=== PATIENT | female | born 1965 | race Caucasian/White ===

== ENCOUNTER → 2017-05-20 | Outpatient (CLI) | payer BC ==
--- NOTE | 2017-05-21 14:08 | MM ---
Reason for exam: screening (asymptomatic). Last mammogram was performed 1 year and 1 month ago. History: Patient is postmenopausal. Benign cyst aspiration, 2011. Took hormonal contraceptives for 8 years. Taking estrogen for 2 years beginning at age 49. Taking progesterone for 2 years beginning at age 49. Physical Findings: A clinical breast exam by your physician is recommended on an annual basis and results should be correlated with mammographic findings. MG 3D Screening Mammo W/Cad Bilateral CC and MLO view(s) were taken. Prior study comparison: April 20, 2016, bilateral MG 3d screening mammo w/cad. March 31, 2015, bilateral MG 3d screening mammo w/cad. The breast tissue is heterogeneously dense. This may lower the sensitivity of mammography. There is a 5mm mass in the central outer left breast at middle depth on CC 24/65 3D image and less well seen on MLO 25/61 3D image. No suspicious abnormality in the right breast. ASSESSMENT: Incomplete: need additional imaging evaluation, BI-RAD 0 RECOMMENDATION: Special view mammogram of the left breast. If lesion persists on supplemental views, image directed ultrasound is recommended. [facility] will attempt to contact patient to return for supplemental views and ultrasound if indicated.
== END | disposition home or self-care (01) ==
LOC: RADMAMWWP 14:58
PROVIDERS: ATTEND Obstetrics & Gynecology
DX: Z12.31 Encounter for screening mammogram for malignant neoplasm of breast (principal)
CPT/HCPCS: 77063; 77067

== ENCOUNTER → 2017-05-27 | Outpatient (CLI) | payer BC ==
--- NOTE | 2017-05-27 14:18 | MM ---
Reason for exam: additional evaluation requested from abnormal screening. Last mammogram was performed less than 1 month ago. History: Patient is postmenopausal. Benign cyst aspiration, 2011. Took hormonal contraceptives for 8 years. Taking estrogen for 2 years beginning at age 49. Taking progesterone for 2 years beginning at age 49. Physical Findings: Nurse did not find any significant physical abnormalities on exam. MG 3D Work Up W/Cad LT Spot compression CC, spot compression MLO, and ML view(s) were taken of the left breast. Prior study comparison: May 20, 2017, bilateral MG 3d screening mammo w/cad. April 20, 2016, bilateral MG 3d screening mammo w/cad. The breast tissue is heterogeneously dense. This may lower the sensitivity of mammography. There is no discrete abnormality on compression or ML view. These results were verbally communicated with the patient and result sheet given to the patient on 05/27/17. ASSESSMENT: Probably benign, BI-RAD 3 RECOMMENDATION: Follow-up diagnostic mammogram of the left breast in 6 months.
== END | disposition home or self-care (01) ==
LOC: RADMAMWWP 13:33
PROVIDERS: ATTEND Obstetrics & Gynecology
DX: R92.8 Other abnormal and inconclusive findings on diagnostic imaging of breast (principal)
CPT/HCPCS: 77065; G0279

== ENCOUNTER → 2017-11-25 | Outpatient (CLI) | payer BC ==
--- NOTE | 2017-11-28 08:51 | MM ---
Reason for exam: follow-up at short interval from prior study. Last mammogram was performed 6 months ago. History: Patient is postmenopausal. Benign cyst aspiration, 2011. Took hormonal contraceptives for 8 years. Taking estrogen for 2 years beginning at age 49. Taking progesterone for 2 years beginning at age 49. Physical Findings: Nurse did not find any significant physical abnormalities on exam. MG 3D Diag Mammo W/Cad LT CC and MLO view(s) were taken of the left breast. Prior study comparison: May 27, 2017, left breast MG 3d work up w/cad LT. May 20, 2017, bilateral MG 3d screening mammo w/cad. April 20, 2016, bilateral MG 3d screening mammo w/cad. The breast tissue is extremely dense which could obscure a lesion on mammography. There is a persistant 6 mm round circumscribed lesion in the left slight upper outer middle breast. These results were verbally communicated with the patient and result sheet given to the patient on 11/25/17. ASSESSMENT: Incomplete: need additional imaging evaluation, BI-RAD 0 RECOMMENDATION: Ultrasound of the left breast.
--- NOTE | 2017-11-28 08:54 | USB ---
Reason for exam: additional evaluation requested from prior study. History: Patient is postmenopausal. Benign cyst aspiration, 2011. Took hormonal contraceptives for 8 years. Taking estrogen for 2 years beginning at age 49. Taking progesterone for 2 years beginning at age 49. US Breast Limited LT Left limited breast ultrasound including focal area of concern, retroareolar and axilla demonstrates an oval 0.4 x 0.3 x 0.5 cm cystic lesion, simple cyst at 3:00 o'clock and a round 0.6 x 0.6 x 0.6 cm cystic lesion at 2 o'clock, likely a simple cyst believed to correspond to mammogram abnormality. These results were verbally communicated with the patient and result sheet given to the patient on 11/25/17. ASSESSMENT: Probably benign, BI-RAD 3 RECOMMENDATION: Ultrasound of the left breast in 6 months. Follow-up diagnostic mammogram of both breasts in 6 months.
== END | disposition home or self-care (01) ==
LOC: RADMAMWWP 06:52
PROVIDERS: ATTEND Obstetrics & Gynecology
DX: R92.8 Other abnormal and inconclusive findings on diagnostic imaging of breast (principal)
CPT/HCPCS: 77061; 77065

== ENCOUNTER → 2018-05-30 | Outpatient (CLI) | payer BC ==
--- NOTE | 2018-05-30 11:13 | MM ---
Reason for exam: follow-up at short interval from prior study. Last mammogram was performed 6 months ago. History: Patient is postmenopausal. Benign cyst aspiration, 2011. Took hormonal contraceptives for 8 years. Taking estrogen for 2 years beginning at age 49. Taking progesterone for 2 years beginning at age 49. Physical Findings: Patient refused breast exam. MG 3D Diag Mammo W/Cad LAUREN Bilateral CC and MLO view(s) were taken. Prior study comparison: November 25, 2017, left breast MG 3d diag mammo w/cad LT. May 27, 2017, left breast MG 3d work up w/cad LT. The breast tissue is heterogeneously dense. This may lower the sensitivity of mammography. There is no discrete abnormality. No significant new findings when compared with previous films. These results were verbally communicated with the patient and result sheet given to the patient on 05/30/18. ASSESSMENT: Incomplete: need additional imaging evaluation, BI-RAD 0 RECOMMENDATION: Ultrasound of the left breast.
--- NOTE | 2018-05-30 11:14 | USB ---
Reason for exam: additional evaluation requested from abnormal screening. History: Patient is postmenopausal. Benign cyst aspiration, 2011. Took hormonal contraceptives for 8 years. Taking estrogen for 2 years beginning at age 49. Taking progesterone for 2 years beginning at age 49. US Breast LT Left complete breast ultrasound includes all four quadrants, the retroareolar region and axilla. Finding demonstrates a 0.5 x 0.3 x 0.5cm cystic lesion at 3 o'clock and a 0.4 x 0.3 x 0.4cm cystic lesion at 9 o'clock. These results were verbally communicated with the patient and result sheet given to the patient on 05/30/18. ASSESSMENT: Benign, BI-RAD 2 RECOMMENDATION: Routine screening mammogram of both breasts in 1 year.
== END | disposition home or self-care (01) ==
LOC: RADMAMWWP 08:03
PROVIDERS: ATTEND Obstetrics & Gynecology
DX: R92.8 Other abnormal and inconclusive findings on diagnostic imaging of breast (principal)
CPT/HCPCS: 77062; 77066

== ENCOUNTER → 2018-09-19 | Outpatient (CLI) | payer BC ==
--- NOTE | 2018-09-19 13:25 | XR ---
EXAMINATION TYPE: XR spine complete AP and Lat DATE OF EXAM: 09/19/2018 COMPARISON: NONE HISTORY: Pain TECHNIQUE: Three views of the cervical spine are submitted. FINDINGS: The cervical spine is visualized in its entirety from C1 thru the top of T1 level. It is s atisfactory in alignment without evidence of acute fracture or dislocation. The pre-vertebral soft t issue appears within normal limits. The C1-C2 articulation is unremarkable on the open mouth view. Disc spaces are well preserved. Minimal posterior spurring at C5-6. IMPRESSION: No acute fracture or dislocation is seen in the cervical spine. Disc spaces are well pre served. THORACIC SPINE 2 VIEWS. TECHNIQUE: Frontal, lateral, and swimmer's view of thoracic spine are obtained. COMPARISON: None. FINDINGS: Thoracic spine show satisfactory alignment without evidence of acute fracture or dislocatio n. Vertebral body heights are preserved. Disc spaces are well preserved. Visualized ribs are unre markable. Mild scattered ventral spurring noted. IMPRESSION: No acute fracture or dislocation is seen in the thoracic spine. Disc spaces are well pres erved. LUMBAR SPINE X-RAY: TECHNIQUE: Three views of the lumbar spine are submitted. COMPARISON: None. FINDINGS: There are 5 lumbar type vertebral bodies identified. The lumbar spine shows satisfactory alignment without evidence of acute fracture or dislocation. Vertebral body heights are within normal limits. Disc spaces are well preserved. The overlying soft tissue appears unremarkable. IMPRESSION: No acute fracture or dislocation is seen in the lumbar spine. Disc spaces are well pres erved.ICD 10 NO FRACTURE, INITIAL EVALUATION
--- NOTE | 2018-09-19 13:40 | CT ---
EXAMINATION TYPE: CT brain wo con DATE OF EXAM: 09/19/2018 COMPARISON: None HISTORY: Post concussin syndrome F07.[address] of the brain was performed. The ventricles, basal cisterns and sulci overlying the cerebral convexities demonstrate a normal appe arance. There is no evidence for intracranial hemorrhage or sulcal effacement. No mass effects are seen. Osseous calvarium is intact. If symptoms persist consider MRI as clinically warranted. IMPRESSION: 1. No acute intracranial process is seen at this time.
== END | disposition home or self-care (01) ==
LOC: RADCTMAIN 12:54
PROVIDERS: ATTEND Family Medicine
DX: F07.81 Postconcussional syndrome (principal); M54.2 Cervicalgia; M54.5 Low back pain
CPT/HCPCS: 70450; 72082

== ENCOUNTER → 2019-06-15 | Outpatient (CLI) | payer BC ==
--- NOTE | 2019-06-16 07:37 | MM ---
Reason for exam: additional evaluation requested from abnormal screening. Last mammogram was performed less than 1 month ago. History: Patient is postmenopausal. Benign cyst aspiration, 2011. Took hormonal contraceptives for 8 years. Taking estrogen for 5 years beginning at age 49. Taking progesterone for 5 years beginning at age 49. Physical Findings: Nurse did not find any significant physical abnormalities on exam. MG 3D Work Up W/Cad LT Spot compression CC, spot compression MLO, and LM view(s) were taken of the left breast. Prior study comparison: June 04, 2019, bilateral MG 3d screening mammo w/cad. May 30, 2018, bilateral MG 3d diag mammo w/cad LAUREN. The breast tissue is heterogeneously dense. This may lower the sensitivity of mammography. 6mm circumscribed round isodense focal asymmetry posterior upper outer quadrant. Similar circumscribed area lower inner quadrant middle depth. Benign etiology is favored. 6 month follow up. These results were verbally communicated with the patient and result sheet given to the patient on 06/15/19. ASSESSMENT: Probably benign, BI-RAD 3 RECOMMENDATION: Follow-up diagnostic mammogram of the left breast in 6 months.
== END | disposition home or self-care (01) ==
LOC: RADMAMWWP 14:49
PROVIDERS: ATTEND Obstetrics & Gynecology
DX: R92.8 Other abnormal and inconclusive findings on diagnostic imaging of breast (principal)
CPT/HCPCS: 77061; 77065

== ENCOUNTER → 2020-02-24 | Outpatient (CLI) | payer BC ==
--- NOTE | 2020-02-24 12:04 | MM ---
Reason for exam: follow-up at short interval from prior study. Last mammogram was performed 8 months ago. History: Patient is postmenopausal. Benign cyst aspiration, 2011. Took hormonal contraceptives for 8 years. Taking estrogen for 5 years beginning at age 49. Taking progesterone for 5 years beginning at age 49. Physical Findings: Nurse did not find any significant physical abnormalities on exam. MG 3D Diag Mammo W/Cad LT CC and MLO view(s) were taken of the left breast. Prior study comparison: June 15, 2019, left breast MG 3d work up w/cad LT. June 04, 2019, bilateral MG 3d screening mammo w/cad. The breast tissue is heterogeneously dense. This may lower the sensitivity of mammography. Finding: There is a typically benign 4 mm equal density (isodense), circumscribed round mass in the 6 o'clock middle position of the left breast. There is no discrete abnormality. Previous nodule not discrete. No significant changes in finding since June 15, 2019 and June 04, 2019. These results were verbally communicated with the patient and result sheet given to the patient on 02/24/20. ASSESSMENT: Benign, BI-RAD 2 RECOMMENDATION: Follow-up diagnostic mammogram of both breasts in 4 months. Back on schedule for May 2020.
== END | disposition home or self-care (01) ==
LOC: RADMAMWWP 10:41
PROVIDERS: ATTEND Obstetrics & Gynecology
DX: R92.8 Other abnormal and inconclusive findings on diagnostic imaging of breast (principal)
CPT/HCPCS: 77061; 77065

== ENCOUNTER → 2020-07-01 | Outpatient (CLI) | payer BC ==
--- NOTE | 2020-07-05 10:43 | MM ---
Reason for exam: screening (asymptomatic). Last mammogram was performed 4 months ago. History: Patient is postmenopausal. Benign cyst aspiration, 2011. Took hormonal contraceptives for 8 years. Taking estrogen for 5 years beginning at age 49. Taking progesterone for 5 years beginning at age 49. Physical Findings: A clinical breast exam by your physician is recommended on an annual basis and results should be correlated with mammographic findings. MG 3D Screening Mammo W/Cad Bilateral CC and MLO view(s) were taken. Prior study comparison: February 24, 2020, left breast MG 3d diag mammo w/cad LT. June 15, 2019, left breast MG 3d work up w/cad LT. The breast tissue is heterogeneously dense. This may lower the sensitivity of mammography. No significant changes when compared with prior studies. ASSESSMENT: Negative, BI-RAD 1 RECOMMENDATION: Routine screening mammogram of both breasts in 1 year. Patient should continue monthly self breast exams. A negative report should not preclude additional follow up of suspicious palpable abnormalities.
== END ==
LOC: RADMAMWWP 14:36
PROVIDERS: ATTEND Obstetrics & Gynecology
DX: Z12.31 Encounter for screening mammogram for malignant neoplasm of breast (principal); Z78.0 Asymptomatic menopausal state
CPT/HCPCS: 77063; 77067

== ENCOUNTER 2020-10-12 09:43 | Day surgery (SDC) | payer BC ==
[2020-10-11 09:02] VITALS: BMI 26.6
[2020-10-12 10:37] VITALS: RESP 16; TEMP 97.8
[2020-10-12] MEDS: LACTATED RINGERS 1,000 ML IV SCH ×2 (10:42→10:54)
[2020-10-12] MEDS ORDERED: PROPOFOL 10 MG/ML 20 ML VIAL IV ONE (10:57)
--- NOTE | 2020-10-12 11:11 | P.PCN ---
Date of Procedure: 10/12/20 Procedure(s) Performed: BRIEF HISTORY: Patient is a 55-year-old pleasant white female scheduled for an elective colonoscopy as a part of screening for colorectal neoplasia. PROCEDURE PERFORMED: Colonoscopy. PREOPERATIVE DIAGNOSIS: Screening for colon cancer. IV sedation per Anesthesia. PROCEDURE: After informed consent was obtained, the patient, was brought into the endoscopy unit. IV sedation was administered by Anesthesia under continuous monitoring. Digital rectal examination was normal. Initially the Olympus CF-160 flexible video colonoscope was then inserted in the rectum, gradually advanced into the cecum without any difficulty. Careful examination was performed as the scope was gradually being withdrawn. Ileocecal valve and the appendiceal orifice were visualized and appeared normal. Prep was excellent. Mucosa of the cecum, ascending colon, transverse colon, descending colon, sigmoid colon, and rectum appeared normal. Retroflexion was performed in the rectum and no lesions were seen. The patient tolerated the procedure well. IMPRESSION: Normal-appearing colon from rectum to cecum with no evidence of colorectal neoplasia . RECOMMENDATIONS: Findings of this examination were discussed with the patient is a family. She was advised to have a repeat screening colonoscopy in 10 years.
[2020-10-12 11:31] VITALS: BP 131/98; PULSE 89
== END 2020-10-12 11:55 | disposition home or self-care (01) ==
LOC: ORWHC2ENDO 09:43
PROVIDERS: ATTEND Internal Medicine Gastroenterology
DX: Z12.11 Encounter for screening for malignant neoplasm of colon (principal); I10 Essential (primary) hypertension; E78.5 Hyperlipidemia, unspecified; Z87.891 Personal history of nicotine dependence; Z79.899 Other long term (current) drug therapy; Z79.3 Long term (current) use of hormonal contraceptives; Z88.5 Allergy status to narcotic agent
CPT/HCPCS: J2704; G0121; 45378

== ENCOUNTER → 2021-07-21 | Outpatient (CLI) | payer BC ==
--- NOTE | 2021-07-21 14:42 | US ---
EXAMINATION TYPE: US thyroid st tissue head/neck DATE OF EXAM: 07/21/2021 COMPARISON: NONE CLINICAL HISTORY: R79.89, E01.0 Thyromegaly. Enlarged. GLAND SIZE: Right Lobe: 5.5 x1.7 x 2.5 cm Overall Parenchyma: homogenous Left Lobe: 4.1 x 1.4 x 1.4 cm Overall Parenchyma: homogeneous Isthmus Thickness: .4 cm NODULES RIGHT: # of nodules measured on right: 1 1. 1.4 X .7 x 1.3 cm, upper , solid or almost completely solid, hypoechoic nodule, which is wider t todd tall, with smooth margins, without echogenic foci. Prior size: 1.6 x .9 x .6 cm Multiple right nodules subcentimeter. Measured largest at upper pole. LEFT: # of nodules measured on left: 1 1. .6 X .5 x .7 cm, lower lateral, echogenic, hyperechoic nodule, which is wider than tall, with sm ooth margins, without echogenic foci. Prior size: .5 x .4 x .3 cm ISTHMUS: # of nodules measured in the isthmus: 0 Bilateral neck scanned, no evidence of lymphadenopathy. IMPRESSION: Thyromegaly with multinodular thyroid stable in appearance. 2017 ACR TI-RADS LEVEL: TR-RADS 4 - Moderately Suspicious: Follow if > 1 cm, FNA if > 1.5 cm *Highest TI-RADS level nodule reported
--- NOTE | 2021-07-21 15:15 | US ---
EXAMINATION TYPE: US transvaginal DATE OF EXAM: 07/21/2021 COMPARISON: NONE CLINICAL HISTORY: R10.30,D26.9. Pain ablation done TECHNIQUE: Transvaginal (TV). EXAM MEASUREMENTS: Uterus: 6.6 x 2.8 x 3.9 cm Endometrial Stripe: .7 cm 1. Uterus: Anteverted Heterogenous calcified area seen measuring 1.4 x 1.2 x 1.5 cm. 2. Endometrium: wnl 3. Right Ovary: 1.5 x 1.2 x 1.7 cm 4. Left Ovary: 1.8 x 1.1 cm not well seen in trans. 5. Bilateral Adnexa: wnl 6. Posterior cul-de-sac: wnl A few small nabothian cysts in the cervix. Endometrial stripe measures 7 mm which is prominent after ablation. Heterogeneous shadowing calcification in the left aspect of the uterus possible calcified f ibroid. No free fluid in the pelvis. Small size ovaries and the adnexa correlate with patient's postmenopausal age. IMPRESSION: Abnormal thickening of the endometrium given postmenopausal age and history of ablation. Consider sampling to further evaluate.
--- NOTE | 2021-07-23 20:41 | NM ---
EXAMINATION TYPE: NM hepatobiliary w EF DATE OF EXAM: 07/21/2021 COMPARISON: NONE INDICATION: Change in bowel habits TECHNIQUE: After the intravenous administration of 3.86 mCi Tc 99m Mebrofenin hepatobiliary scintigra phy is performed. Images were obtained immediately post injection. FINDINGS: There is prompt uptake and excretion of radiotracer by the liver. Extrahepatic ducts are identified at 2 minutes. The gallbladder is visualized within 12 minutes. Small bowel activity is noted within 8 minutes. At one hour 8 ounces of oral ensure plus is given to mimic CCK and gallbladder ejection fraction is c alculated at 97 %, which is markedly elevated. (Normal >35% and <80%.). IMPRESSION: 1. Correlate for biliary hyperkinesia.
== END | disposition home or self-care (01) ==
LOC: RADNMMAIN 12:34
PROVIDERS: ATTEND Family Medicine
DX: R93.89 Abnormal findings on diagnostic imaging of other specified body structures (principal); R93.2 Abnormal findings on diagnostic imaging of liver and biliary tract; E04.2 Nontoxic multinodular goiter
CPT/HCPCS: 76536; 76830; 78226; A9537

== ENCOUNTER → 2021-07-25 | Outpatient (CLI) | payer BC ==
--- NOTE | 2021-07-26 09:45 | MM ---
Reason for exam: screening (asymptomatic). Last mammogram was performed 1 year and 1 month ago. History: Patient is postmenopausal. Benign cyst aspiration, 2011. Took hormonal contraceptives for 8 years. Taking estrogen for 5 years beginning at age 49. Taking progesterone for 5 years beginning at age 49. Physical Findings: A clinical breast exam by your physician is recommended on an annual basis and results should be correlated with mammographic findings. MG 3D Screening Mammo W/Cad Bilateral CC and MLO view(s) were taken. Prior study comparison: July 01, 2020, bilateral MG 3d screening mammo w/cad. February 24, 2020, left breast MG 3d diag mammo w/cad LT. The breast tissue is extremely dense which could obscure a lesion on mammography. Finding: There is a new15 mm circumscribed oval mass located 5 cm from the nipple in the slight upper outer quadrant, middle, posterior position of the right breast. There is a new 10mm round circumscribed lesion posterior left breast upper outer quadrant 6cm from the nipple. ASSESSMENT: Incomplete: need additional imaging evaluation, BI-RAD 0 RECOMMENDATION: Ultrasound of both breasts. [facility] will attempt to contact patient to return for ultrasound.
== END | disposition home or self-care (01) ==
LOC: RADMAMWWP 14:57
PROVIDERS: ATTEND Obstetrics & Gynecology
DX: Z12.31 Encounter for screening mammogram for malignant neoplasm of breast (principal); Z78.0 Asymptomatic menopausal state
CPT/HCPCS: 77063; 77067

== ENCOUNTER → 2021-07-27 | Outpatient (CLI) | payer BC ==
--- NOTE | 2021-07-27 08:46 | USB ---
Reason for exam: additional evaluation requested from abnormal screening. History: Patient is postmenopausal. Benign cyst aspiration, 2011. Took hormonal contraceptives for 8 years. Taking estrogen for 5 years beginning at age 49. Taking progesterone for 5 years beginning at age 49. Physical Findings: A clinical breast exam by your physician is recommended on an annual basis and results should be correlated with mammographic findings. US Breast Workup Limited LAUREN Right limited breast ultrasound including focal area of concern, retroareolar and axilla demonstrates a 1.4 x 1.3 x 0.7cm oval, cystic lesion at 10 o'clock and a 0.3 x 0.3 x 0.2cm oval, cystic lesion at 11 o'clock. Scanned 9-12 o'clock. Left limited breast ultrasound including focal area of concern, retroareolar and axilla demonstrates a 1.0 x 0.7 x 0.5cm oval, cystic lesion at 2 o'clock and a 0.7 x 0.4 x 0.3cm oval, cystic cluster at 3 o'clock. Scanned 12-3 o'clock. Benign and likely mammographic correlate. 6 month follow up mammogram recommended. ASSESSMENT: Probably benign, BI-RAD 3 RECOMMENDATION: Follow-up diagnostic mammogram of both breasts in 6 months.
== END | disposition home or self-care (01) ==
LOC: RADUSWWP 07:31
PROVIDERS: ATTEND Obstetrics & Gynecology
DX: R92.8 Other abnormal and inconclusive findings on diagnostic imaging of breast (principal); Z78.0 Asymptomatic menopausal state

== ENCOUNTER → 2022-02-01 | Outpatient (CLI) | payer BC ==
--- NOTE | 2022-02-01 15:19 | MM ---
Reason for Exam: Follow-up at short interval from prior study. Last screening mammogram was performed 7 month(s) ago. Patient History: Menarche at age 15. First Full-Term at age 31. Postmenopausal. Currently using Estrogen, beginning at age 49 for 5 years. Currently using Progesterone, beginning at age 49 for 5 years. Patient used Hormonal Contraceptives for 8 years. Benign Cyst Aspiration. Risk Values: Ashley 5 year model risk: 1.3%. NCI Lifetime model risk: 9.3%. Prior Study Comparison: 08/27/2005 Bilateral Screening Mammogram, LOCATED [facility]. 09/17/2007 Bilateral Screening Mammogram, [facility]. 11/30/2008 Bilateral Screening Mammogram, [facility]. 01/04/2011 Bilateral Screening Mammogram, [facility]. 08/30/2011 Left Diagnostic Ultrasound, [facility]. 01/07/2012 Bilateral Diagnostic Mammogram, [facility]. 03/09/2013 Bilateral Screening Mammogram, [facility] 03/10/2014 Bilateral Screening Mammogram, [facility] 03/31/2015 Bilateral Screening Mammogram, [facility]. 04/20/2016 Bilateral Screening Mammogram, [facility]. 05/20/2017 Bilateral Screening Mammogram, [facility]. 05/27/2017 Left Diagnostic Mammogram, [facility]. 11/25/2017 Left Diagnostic Mammogram, [facility]. 11/25/2017 Left Diagnostic Ultrasound, [facility]. 05/30/2018 Bilateral Diagnostic Mammogram, [facility]. 05/30/2018 Left Diagnostic Ultrasound, [facility]. 06/04/2019 Bilateral Screening Mammogram, [facility]. 06/15/2019 Left Diagnostic Mammogram, [facility]. 02/24/2020 Left Diagnostic Mammogram, [facility]. 07/01/2020 Bilateral Screening Mammogram, [facility]. 07/25/2021 Bilateral Screening Mammogram, [facility]. 07/27/2021 Bilateral Diagnostic Ultrasound, [facility]. Tissue Density: The breast tissue is extremely dense which could obscure a lesion on mammography. Findings: Analyzed By CAD. No suspicious calcifications within either breast. Stable 15 mm circumscribed oval mass in the upper outer quadrant middle to posterior position of the right breast. Stable 1 cm circumscribed lesion posterior left breast upper outer quadrant. These correspond to cystic lesions on prior ultrasound. No new suspicious masses. Overall Assessment: Probably benign, BI-RAD 3 Management: Diagnostic Mammogram of both breasts in 6 months. A clinical breast exam by your physician is recommended on an annual basis and results should be correlated with mammographic findings. This exam should not preclude additional follow-up of suspicious palpable abnormalities. Results were given to the patient verbally at the time of exam. Electronically signed and approved by: Alonso Barger D.O.
== END | disposition home or self-care (01) ==
LOC: RADMAMWWP 14:54
PROVIDERS: ATTEND Obstetrics & Gynecology
DX: R92.8 Other abnormal and inconclusive findings on diagnostic imaging of breast (principal); Z78.0 Asymptomatic menopausal state
CPT/HCPCS: 77062; 77066

== ENCOUNTER → 2022-08-06 | Outpatient (CLI) | payer BC ==
--- NOTE | 2022-08-06 15:23 | MM ---
Reason for Exam: Follow-up at short interval from prior study. Last screening mammogram was performed 6 month(s) ago. Patient History: Menarche at age 15. First Full-Term at age 31. Postmenopausal. Currently using Estrogen, beginning at age 49 for 5 years. Currently using Progesterone, beginning at age 49 for 5 years. Patient used Hormonal Contraceptives for 8 years. Benign Cyst Aspiration. Risk Values: Ashley 5 year model risk: 1.3%. NCI Lifetime model risk: 9.3%. Prior Study Comparison: 03/31/2015 Bilateral Screening Mammogram, [facility]. 04/20/2016 Bilateral Screening Mammogram, [facility]. 05/20/2017 Bilateral Screening Mammogram, [facility]. 05/27/2017 Left Diagnostic Mammogram, [facility]. 11/25/2017 Left Diagnostic Mammogram, [facility]. 11/25/2017 Left Diagnostic Ultrasound, [facility]. 05/30/2018 Bilateral Diagnostic Mammogram, [facility]. 05/30/2018 Left Diagnostic Ultrasound, [facility]. 06/04/2019 Bilateral Screening Mammogram, [facility]. 06/15/2019 Left Diagnostic Mammogram, [facility]. 02/24/2020 Left Diagnostic Mammogram, [facility]. 07/01/2020 Bilateral Screening Mammogram, [facility]. 07/25/2021 Bilateral Screening Mammogram, [facility]. 07/27/2021 Bilateral Diagnostic Ultrasound, [facility]. 02/01/2022 Bilateral MG 3D diag mammo w/cad LAUREN, [facility]. Tissue Density: The breast tissue is heterogeneously dense. This may lower the sensitivity of mammography. Findings: Analyzed By CAD. Previously noted nodule left breast is resolved. Stable nodule right breast. Likely reflective of waxing and waning cysts. Benign calcifications seen bilaterally. Overall Assessment: Benign, BI-RAD 2 Management: Screening Mammogram of both breasts in 1 year. A clinical breast exam by your physician is recommended on an annual basis and results should be correlated with mammographic findings. This exam should not preclude additional follow-up of suspicious palpable abnormalities. Results were given to the patient verbally at the time of exam. Electronically signed and approved by: Darrin Chester M.D. Radiologis
== END | disposition home or self-care (01) ==
LOC: RADMAMWWP 14:55
PROVIDERS: ATTEND Obstetrics & Gynecology
DX: R92.8 Other abnormal and inconclusive findings on diagnostic imaging of breast (principal); Z78.0 Asymptomatic menopausal state
CPT/HCPCS: 77062; 77066

== ENCOUNTER → 2023-08-08 | Outpatient (CLI) | payer BC ==
--- NOTE | 2023-08-13 11:00 | MM ---
Reason for Exam: Screening (asymptomatic). Last screening mammogram was performed 12 month(s) ago. Patient History: Menarche at age 15. First Full-Term at age 31. Postmenopausal. Currently using Estrogen, beginning at age 49 for 5 years. Currently using Progesterone, beginning at age 49 for 5 years. Patient used Hormonal Contraceptives for 8 years. Benign Cyst Aspiration. Risk Values: Ashley 5 year model risk: 1.3%. NCI Lifetime model risk: 9.1%. Prior Study Comparison: 07/25/2021 Bilateral Screening Mammogram, [facility]. 02/01/2022 Bilateral MG 3D diag mammo w/cad LAUREN, [facility]. 08/06/2022 Bilateral MG 3D diag mammo w/cad LAUREN, [facility]. Tissue Density: The breasts are heterogeneously dense, which may obscure small masses. Findings: Analyzed By CAD. Right breast: There is no suspicious group of microcalcifications or new suspicious mass. Smaller size of right posterior depth lateral aspect lesion compared to immediate prior in 23 which appears to have biopsy clip in place. Left breast: There is no suspicious group of microcalcifications or new suspicious mass. Overall Assessment: Benign, BI-RAD 2 Management: Screening Mammogram of both breasts in [address] [facility] will attempt to contact patient to return for supplemental views and ultrasound if indicated. Patient should continue monthly self-breast exams. A clinical breast exam by your physician is recommended on an annual basis. This exam should not preclude additional follow-up of suspicious palpable abnormalities. Note on Ashley scores and lifetime risk: 1. A Ashley score greater than 3% is considered moderate risk. If this is the case, consider specialist referral to assess eligibility for a risk reducing agent. 2. If overall lifetime risk for the development of breast cancer is 20% or higher, the patient may qualify for future screening with alternating mammogram and breast MRI. Electronically signed and approved by: Héctor Nunez DO
== END | disposition home or self-care (01) ==
LOC: RADMAMWWP 14:59
PROVIDERS: ATTEND Obstetrics & Gynecology
DX: Z12.31 Encounter for screening mammogram for malignant neoplasm of breast (principal); Z78.0 Asymptomatic menopausal state
CPT/HCPCS: 77063; 77067

== ENCOUNTER → 2023-09-04 | Outpatient (CLI) | payer BC ==
--- NOTE | 2023-09-04 15:49 | NM ---
EXAMINATION TYPE: NM Thyroid Iodine Therapy Oral DATE OF EXAM: 09/04/2023 COMPARISON: Office report and outside uptake and thyroid scan results were reviewed. HISTORY: 58-year-old female E04.2, E05.9, toxic multinodular goiter. 2 hyperfunctioning nodules. Zainab ent symptomatic. RADIOTRACER: 26 mCi I-131 capsule. Outpatient therapy. TECHNIQUE: Dose was prescribed (written directive) by an Authorized User in conjunction with treatment request corey Post. Dr. Post decided on a dose based on clinical criteria. Risks, benefits, and potential complications of radioactive I-131 therapy were discussed in detail wi the patient by myself and the nuclear equipment test engineer. Verbal and written informed consent wer e obtained. Written instructions were given for radiation safety precautions to be observed for 11 days outpatien t. Patient was specifically advised to avoid close contact with children, women, and other m embers for public Dose was verified in dose caliber and patient was given oral I-131 pill under the supervision of me ehidy rankin the nuclear equipment test engineer. There were no immediate complications. IMPRESSION: Outpatient 26 mCi I-131 oral therapy capsule for hyperthyroidism (TMNG). The patient will follow-up himanshu Barbour.
== END | disposition home or self-care (01) ==
LOC: RADNMMAIN 12:24
PROVIDERS: ATTEND Internal Medicine
DX: E04.2 Nontoxic multinodular goiter (principal); E05.90 Thyrotoxicosis, unspecified without thyrotoxic crisis or storm
CPT/HCPCS: 79005; A9517